=== PATIENT | female | born 1945 | race Caucasian/White ===

== ENCOUNTER 2024-04-21 13:13 | Outpatient (AMB) | payer MEDICARE, SELFPAY ==
[2024-04-21 13:21] VITALS: BP 136/80; PULSE 82; O2SAT 99; BMI 19.2
--- NOTE | 2024-04-21 13:21 | A.OFFPC_ITS ---
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 Accompanied by: Self / Same As Patient Allergies No Known Allergies Allergy (Verified 04/21/24 13:31) Medication List - Last Reconciled 04/21/24 by Jeanette Lux MD No Known Home Meds Tobacco use date assessed: 04/21/24 Fall risk assessment: No Falls in past year Last assessed Fall Risk: 04/21/24 Dental Screening Dental Screen Date: 04/21/24 Did you have a dental visit in the last 12 months?: Yes Did you have a dental problem in the last 6 months where you did not have access to dental care?: No Was dental information given to patient?: Patient has dentist HPI HPI Comments History of Present Illness Details 78 year old female with a past medical h istory of osteoporosis, multiple compression fractures, meningioma, elevated blood pressure presenting for follow up Meningioma: last exam 09/2023. Osteoporosis: recent 07/2023. History of multiple compression fractures. Takes calcium. Takes vitamin D during winter months. declines bisphosphanate etc Mammo 04/2023 DXA 2022 Colonoscopy-refuses. ROS CONSTITUTIONAL: Denies weight loss, fever and chills. HEENT: Denies changes in vision and hearing. RESPIRATORY: Denies SOB and cough. CV: Denies palpitations and CP GI: Denies abdominal pain, nausea, vomiting and diarrhea. : Denies dysuria and urinary frequency. MSK: Denies new myalgia and joint pain. SKIN: Denies rash and pruritus. NEUROLOGICAL: Denies headache PSYCHIATRIC: Denies recent changes in mood. PHYSICAL EXAM: GENERAL: Alert and oriented x 3. NAD EYES: EOMI. Anicteric. HENT: Moist mucous membranes. No scleral icterus. No cervical lymphadenopathy. LUNGS: Clear to auscultation bilaterally. CARDIOVASCULAR: Regular rate and rhythm. No murmur. No JVD. ABDOMEN: Soft, non-tender +bs EXTREMITIES: No edema. Non-tender. SKIN: No rashes or lesions. Warm. NEUROLOGIC: No focal neurological deficits. CN II-XII grossly intact PSYCHIATRIC: Cooperative. Appropriate mood and affect [facility] Social History (Updated 04/21/24 @ 13:33 by Deisy Wood [facility]) Household Members: None Housing: House 75 years or older and lives alone: Yes Alcohol intake: never Patient Tobacco Use Status: Never used Tobacco e-Cigarette/Vaping Use: Never Used service: No Current occupational status: retired Cognitive needs: No Hearing needs: No Vision needs: No Questionnaire PHQ-9 Over the last 2 weeks, how often have you been bothered by any of the following problems? 1. Little interest or pleasure in doing things: not at all 2. Feeling down, depressed, or hopeless: not at all 3. Trouble falling or staying asleep, or sleeping too much: not at all 4. Feeling tired or having little energy: not at all 5. Poor appetite or overeating: not at all 6. Feeling bad about yourself - or that you are a failure or have let yourself or your family down: not at all 7. Trouble concentrating on things, such as reading the newspaper or watching television: not at all 8. Moving or speaking so slowly that other people could have noticed. Or the opposite - being so fidgety or restless that you have been moving around a lot more than usual: not at all 9. Thoughts that you would be better off or of hurting yourself in some way: not at all Total score: 0 Depression Screening Interpretation: Negative (negative) Depression Screening Done: Yes 08151 - PHQ-9 Billing: Yes Source: Developed by Drs. Dexter Munoz, Penelope Grubbs, Ish Mancilla and colleagues, with an educational giovani from [employer] Thrive Questionnaire Date Thrive assessed: 04/21/24 I am a: Patient What is your living situation today?: I have a steady place to live Within the past 12 months, did the food you bought not last and you didn't have the money to get more?: Never true Within the past 12 months, did you worry whether your food would run out before you got money to buy more?: Never true Do you have trouble paying for medicines?: No Do you have trouble getting transportation to medical appointments?: No Do you have trouble paying your heating and electricity bill?: No Do you have trouble taking care of your child, family member or friend?: No Do you have trouble with day-to-day activities such as bathing, preparing meals, shopping, managing finances, etc.?: No Are you currently unemployed and looking for a job?: No Are you interested in more education?: No Please select the resources that you would like help with: None Currently or been in a relationship where the following occur: No concerns re ported THRIVE Score: 0 AUDIT C Alcohol Use Questionnaire (AUDIT-C) 1. How often do you have a drink containing alcohol?: Never 3. How often do you have six or more drinks on one occasion?: Never Total Score: 0 ESME-7 AMB Questionnaire ESME-7 Date ESME - 7 assessed: 04/21/24 Feeling nervous, anxious, or on edge: 0 = Not at all Not being able to stop or control worryin = Not at all Worrying too much about different things: 0 = Not at all Trouble relaxin = Not at all Being so restless that it is hard to sit still: 0 = Not at all Becoming easily annoyed or irritable: 0 = Not at all Feeling afraid as if something awful might happen: 0 = Not at all Total ESME-7 score (0-4 normal; 5-9 mild; 10-14 moderate; 15-21 severe): 0 Source: Developed by Drs. Dexter Munoz, Penelope Grubbs, Ish Mancilla and colleagues, with an educational giovani from [employer] ESME-7 Assessment Billing ESME-7 Assessment Tool: ESME-7 Assessment 59149 Physical exam (Primary Care) Vital Signs: Last Vital Signs Pulse 82 04/21/24 13:21 BP 136/80 04/21/24 13:21 Pulse Ox 99 04/21/24 13:21 Oxygen Delivery Method Room Air 04/21/24 13:21 BMI result Body Mass Index 19.2 Tobacco/Smoking Status: Tobacco use Status Tobacco use date assessed 04/21/24 04/21/24 13:34 Patient Tobacco Use Status Never used Tobacco 04/21/24 13:34 e-Cigarette/Vaping Use Never Used 04/21/24 13:34 PHQ-9: PHQ-9 Score PHQ-9: Total score 0 04/21/24 13:34 Depression Screening Interpretation: Negative (negative) Thrive Assessment: Date of Thrive Assessment Date Thrive assessed 04/21/24 04/21/24 13:34 Currently or been in a relationship where the following occur: No concerns reported Assessment and Plan Assessment & Plan (1) Osteoporosis: Code(s): M81.0 - Age-related osteoporosis without current pathological fracture Qualifiers: Osteoporosis type: age-related Presence of current pathological fracture: with current pathological fracture Encounter type: sequela Qualified Code(s): M80.00XS - Age-related osteoporosis with current pathological fracture, unspecified site, sequela Plan: continue vitamin D, calcium (2) Hyperlipidemia: Code(s): E78.5 - Hyperlipidemia, unspecified Qualifiers: Hyperlipidemia type: mixed hyperlipidemia Qualified Code(s): E78.2 - Mixed hyperlipidemia Plan: declines statin therapy (3) History of compression fracture of spine: Code(s): Z87.81 - Personal history of (healed) traumatic fracture Orders: Orders Complete Blood Count Auto Diff Today E78.5 - Hyperlipidemia, unspecified, M80.00XS - Age-related osteoporosis with current pathological fracture, unspecified site, sequela, Z13.0 - Encounter for screening for diseases of the blood and blood-forming organs and certain disorders involving the immune mechanism, Z13.228 - Encounter for screening for other metabolic disorders Comprehensive Met. Panel Today E78.5 - Hyperlipidemia, unspecified, M80.00XS - Age-related osteoporosis with current pathological fracture, unspecified site, sequela, Z13.0 - Encounter for screening for diseases of the blood and blood- forming organs and certain disorders involving the immune mechanism, Z13.228 - Encounter for screening for other metabolic disorders Lipid Panel Today E78.5 - Hyperlipidemia, unspecified, M80.00XS - Age-related osteoporosis with current pathological fracture, unspecified site, sequela, Z13.0 - Encounter for screening for diseases of the blood and blood-forming organs and certain disorders involving the immune mechanism, Z13.228 - Encounter for screening for other metabolic disorders UA CC w/rflx Micro + Cult Today E78.5 - Hyperlipidemia, unspecified, M80.00XS - Age-related osteoporosis with current pathological fracture, unspecified site, sequela, Z13.0 - Encounter for screening for diseases of the blood and blood- forming organs and certain disorders involving the immune mechanism, Z13.228 - Encounter for screening for other metabolic disorders Coding Level of Care Code Tele Est Pt Level 4 (75180) Complex EM visit Add On G2211 Diagnoses Age-related osteoporosis with current pathological fracture, sequela M80.00XS Osteoporosis type: age-related Presence of current pathological fracture: with current pathological fracture Encounter type: sequela Mixed hyperlipidemia E78.2 Hyperlipidemia type: mixed hyperlipidemia History of compression fracture of spine Z87.81 Additional Codes ESME-7 Assessment Billing - ESME-7 Assessment Tool: ESME-7 Assessment 54128 ([id number])
== END 2024-04-21 14:05 | disposition home or self-care (01) ==
PROVIDERS: PCP Internal Medicine; Visit Provider Internal Medicine
DX: E78.2 Mixed hyperlipidemia (principal); M80.00XS Age-related osteoporosis with current pathological fracture, unspecified site, sequela; Z87.81 Personal history of (healed) traumatic fracture
CPT/HCPCS: 99214

== ENCOUNTER 2024-05-15 07:45 | Outpatient (REF) | payer MEDICARE, SELFPAY ==
[2024-05-15 11:02] LABS: MANUAL DIFF FLAG NO
[2024-05-15 11:11] LABS: Appearance Urine Clear; Color Urine Yellow; Glucose Urine UA Negative (Negative); Leukocyte Esterase Urine Trace (Negative); Nitrite Urine Negative (Negative); PH 6.5 (5.0-9.0); UMIC TRIGGER UACC YES; Urine Blood Negative (Negative); Urine Ketones Negative (Negative); Urine Protein Negative (Neg-Trace)
[2024-05-15 11:19] LABS: Basophils Absolute Auto 0.1 X10*3/uL (0.0-0.2); Basophils Percent Auto 1.1 % (0-2); Eosinophils Absolute Auto 0.2 X10*3/uL (0.0-0.4); Eosinophils Percent Auto 3.9 % (0-4); Hematocrit 39.1 % (37.0-47.0); Hemoglobin 12.7 g/dl (12.0-16.0); Imm Gran Abs Auto 0.01 X10*3/uL (0.00-0.03); Imm Gran Pct Auto 0.2 % (0.0-0.4); Lymphocytes Absolute Auto 1.3 X10*3/uL (1.2-4.9); Lymphocytes Percent Auto 27.7 % (20-40); Mean Corpuscular HGB Conc 32.5 g/dl (31.0-35.0); Mean Corpuscular Volume 92.2 fL (80.0-98.0); Mean Platelet Volume 10.7 fL (9.4-12.3); Monocytes Absolute Auto 0.4 X10*3/uL (0.1-1.2); Monocytes Percent Auto 7.6 % (2-11); Neutrophils Absolute Auto 2.7 x10*3/uL (2.0-8.3); Neutrophils Percent Auto 59.5 % (45-73); Platelet Count 201 X10*3/uL (160-400); Red Blood Count 4.24 X10*6/uL (4.20-5.50); Red Cell Distribution Width 13.5 % (11.0-16.0); White Blood Count 4.6 X10*3/uL (4.8-10.8)
[2024-05-15 11:28] LABS: Bacteria Urine None Seen (None Seen); Hyaline Casts Urine 0-2 /LPF (0-2); RBC Urine 0-2 /HPF (0-2); Squamous Epithelial Cell Urine 0-2 /HPF (0-2); WBC Urine 0-5 /HPF (0-5)
[2024-05-15 11:32] LABS: Alanine Aminotransferase 12 U/L (0-31); Albumin Level 4.1 g/dL (3.5-5.0); Alkaline Phosphatase 69 U/L (39-117); Anion Gap 12 (12-20); Aspartate Amino Transferase 23 U/L (5-31); Bilirubin Total 1.3 mg/dL (0.0-1.0); Blood Urea Nitrogen 17 mg/dL (9-16); Calcium 9.7 mg/dL (8.4-10.2); Carbon Dioxide 29 mmol/L (22-29); Chloride 106 mmol/L (96-108); Cholesterol 207 mg/dL (<200); Estimated Glomerular Filt Rate > 60; Glucose Random 77 mg/dL (60-115); HDL Cholesterol 91 mg/dL (>40); LDL Cholesterol Calculated 106 mg/dL (<100); Potassium 4.4 mmol/L (3.3-5.1); Sodium 143 mmol/L (135-145); Triglycerides 54 mg/dL (<150)
== END 2024-05-15 07:46 | disposition home or self-care (01) ==
LOC: HO.WFDLDS 07:45
PROVIDERS: Visit Provider Internal Medicine
DX: E78.5 Hyperlipidemia, unspecified (principal); M80.00XS Age-related osteoporosis with current pathological fracture, unspecified site, sequela; Z13.0 Encounter for screening for diseases of the blood and blood-forming organs and certain disorders involving the immune mechanism; Z13.228 Encounter for screening for other metabolic disorders
CPT/HCPCS: 36415; 80053; 80061; 81001; 85025

== ENCOUNTER 2024-08-04 15:37 | Outpatient (AMB) | payer MEDICARE, SELFPAY ==
--- NOTE | 2024-08-04 13:30 | MHC.PC.OV ---
Vital Signs 08/04/24 15:51 Height 4 ft 10 in Weight 94 lb 4 oz BMI 19.7 BP 138/76 Blood Pressure Location Rt brachial Position Sitting Pulse 77 Pulse Source Pulse Oximeter Pulse Oximetry (%) 97 Oxygen Delivery Method Room Air Intake Visit Reasons: Physical Allergies No Known Allergies Allergy (Verified 08/04/24 15:55) Tobacco use date assessed: 08/04/24 Fall risk assessment: No Falls in past year Dental Screening Dental Screen Date: 08/04/24 Did you have a dental visit in the last 12 months?: Yes Did you have a dental problem in the last 6 months where you did not have access to dental care?: No Was dental information given to patient?: Patient has dentist HPI HPI Comments History of Present Illness Details 78 year old female with a past medical history of osteoporosis, multiple compression fractures, meningioma, elevated blood pressure presenting for physical exam Meningioma: last exam 09/2023. Osteoporosis: recent 07/2023. History of multiple compression fractures. Takes calcium. Takes vitamin D during winter months. declines bisphosphanate etc Saw Dr Mejias for knee pain. Offered steroid shot but she declined. She wanted to make sure there was no fracture. Mammo 04/2023 DXA 2022 Colonoscopy-refuses. ROS CONSTITUTIONAL: Denies weight loss, fever and chills. HEENT: Denies changes in vision and hearing. RESPIRATORY: Denies SOB and cough. CV: Denies palpitations and CP GI: Denies abdominal pain, nausea, vomiting and diarrhea. : Denies dysuria and urinary frequency. MSK: see HPI SKIN: Denies rash and pruritus. NEUROLOGICAL: Denies headache PSYCHIATRIC: Denies recent changes in mood. PHYSICAL EXAM: GENERAL: Alert and oriented x 3. NAD EYES: EOMI. Anicteric. HENT: Moist mucous membranes. No scleral icterus. No cervical lymphadenopathy. LUNGS: Clear to auscultation bilaterally. CARDIOVASCULAR: Regular rate and rhythm. No murmur. No JVD. ABDOMEN: Soft, non-tender +bs EXTREMITIES: No edema. Non-tender. SKIN: No rashes or lesions. Warm. NEUROLOGIC: No focal neurological deficits. CN II-XII grossly intact PSYCHIATRIC: Cooperative. Appropriate mood and affect [facility] Surgical History (Updated 08/04/24 @ 15:58 by Jeanette Michaud CMA) H/O rotator cuff surgery H/O: hysterectomy Family History (Updated 08/04/24 @ 16:00 by Jeanette Michaud [facility]) Mother Pancreatic cancer Father Lung cancer Brother Thyroid cancer Social History Household Members: None Housing: House 75 years or older and lives alone: Yes Alcohol intake: never Patient Tobacco Use Status: Never used Tobacco e-Cigarette/Vaping Use: Never Used service: No Current occupational status: retired Cognitive needs: No Hearing needs: No Vision needs: No Questionnaire PHQ-9 Over the last 2 weeks, how often have you been bothered by any of the following problems? 1. Little interest or pleasure in doing things: not at all 2. Feeling down, depressed, or hopeless: not at all 3. Trouble falling or staying asleep, or sleeping too much: not at all 4. Feeling tired or having little energy: not at all 5. Poor appetite or overeating: not at all 6. Feeling bad about yourself - or that you are a failure or have let yourself or your family down: not at all 7. Trouble concentrating on things, such as reading the newspaper or watching television: not at all 8. Moving or speaking so slowly that other people could have noticed. Or the opposite - being so fidgety or restless that you have been moving around a lot more than usual: not at all 9. Thoughts that you would be better off or of hurting yourself in some way: not at all Total score: 0 Depression Screening Interpretation: Negative (negative) Depression Screening Done: Yes 82634 - PHQ-9 Billing: Yes Source: Developed by Drs. Dexter Muonz, Penelope Grubbs, Ish Mancilla and colleagues, with an educational giovani from [employer]. Thrive Questionnaire Date Thrive assessed: 08/01/24 I am a: Patient What is your living situation today?: I have a steady place to live Within the past 12 months, did the food you bought not last and you didn't have the money to get more?: Never true Within the past 12 months, did you worry whether your food would run out before you got money to buy more?: Never true Do you have trouble paying for medicines?: No Do you have trouble getting transportation to medical appointments?: No Do you have trouble paying your heating and electricity bill?: No Do you have trouble taking care of your child, family member or friend?: No Do you have trouble with day-to-day activities such as bathing, preparing meals, shopping, managing finances, etc.?: No Are you currently unemployed and looking for a job?: No Are you interested in more education?: No Please select the resources that you would like help with: None THRIVE Score: 0 AUDIT C Alcohol Use Questionnaire (AUDIT-C) 1. How often do you have a drink containing alcohol?: Never 3. How often do you have six or more drinks on one occasion?: Never Total Score: 0 ESME-7 AMB Questionnaire ESME-7 Date ESME - 7 assessed: 08/04/24 Feeling nervous, anxious, or on edge: 0 = Not at all Not being able to stop or control worryin = Not at all Worrying too much about different things: 0 = Not at all Trouble relaxin = Not at all Being so restless that it is hard to sit still: 0 = Not at all Becoming easily annoyed or irritable: 0 = Not at all Feeling afraid as if something awful might happen: 0 = Not at all Total ESME-7 score (0-4 normal; 5-9 mild; 10-14 moderate; 15-21 severe): 0 Source: Developed by Drs. Dexter Munoz, Penelope Grubbs, Ish Mancilla and colleagues, with an educational giovani from [employer]. Physical exam (Primary Care) Vital Signs: Last Vital Signs Pulse 77 08/04/24 15:51 BP 138/76 08/04/24 15:51 Pulse Ox 97 08/04/24 15:51 Oxygen Delivery Method Room Air 08/04/24 15:51 BMI result Body Mass Index 19.7 Tobacco/Smoking Status: Tobacco use Status Tobacco use date assessed 08/04/24 08/04/24 16:00 Patient Tobacco Use Status Never used Tobacco 08/04/24 13:30 e-Cigarette/Vaping Use Never Used 08/04/24 13:30 PHQ-9: PHQ-9 Score PHQ-9: Total score 0 08/04/24 21:44 Depression Screening Interpretation: Negative (negative) Thrive Assessment: Date of Thrive Assessment Date Thrive assessed 08/01/24 08/04/24 13:30 Coding Level of Care Code Est Pt Prev Care >65y(58606) Diagnoses Physical exam Z00.00 Age-related osteoporosis with current pathological fracture, sequela M80.00XS Encounter type: sequela Osteoporosis type: age-related Presence of current pathological fracture: with current pathological fracture History of compression fracture of spine Z87.81 Assessment & Plan Assessment & Plan (1) Physical exam: Code(s): Z00.00 - Encounter for general adult medical examination without abnormal findings Category: Medical Plan: 78 year old presenting for annual review. Chronic medical conditions discussed Preventive measures for age Continues to declines colonoscopy Declines osteoporosis rx She will follow up in six months (2) Osteoporosis: Code(s): M81.0 - Age-related osteoporosis without current pathological fracture Category: Medical Qualifiers: Encounter type: sequela Osteoporosis type: age-related Presence of current pathological fracture: with current pathological fracture Qualified Code(s): M80.00XS - Age-related osteoporosis with current pathological fracture, unspecified site, sequela Plan: see above (3) History of compression fracture of spine: Code(s): Z87.81 - Personal history of (healed) traumatic fracture Category: Medical Plan: declines rx treatment Orders: Orders MM screening mammo BI Today Z12.31 - Encounter for screening mammogram for malignant neoplasm of breast
[2024-08-04 15:51] VITALS: BP 138/76; PULSE 77; O2SAT 97; BMI 19.7
== END 2024-08-04 16:33 | disposition home or self-care (01) ==
PROVIDERS: PCP Internal Medicine; Visit Provider Internal Medicine
DX: Z00.00 Encounter for general adult medical examination without abnormal findings (principal); M80.00XS Age-related osteoporosis with current pathological fracture, unspecified site, sequela; Z87.81 Personal history of (healed) traumatic fracture

== ENCOUNTER → 2024-08-04 15:37 | Outpatient (BNVA) | payer MEDICARE, SELFPAY | PROVIDERS: PCP Internal Medicine; Visit Provider Internal Medicine | DX: Z00.00 Encounter for general adult medical examination without abnormal findings (principal); M80.00XD Age-related osteoporosis with current pathological fracture, unspecified site, subsequent encounter for fracture with routine healing; Z87.81 Personal history of (healed) traumatic fracture | CPT/HCPCS: 96127; 99397 ==

== ENCOUNTER 2025-05-19 09:57 | Outpatient (AMB) | payer MEDICARE, SELFPAY ==
--- NOTE | 2025-05-19 10:12 | A.OFFPC_ITS ---
Vital Signs 05/19/25 10:22 Height 4 ft 10 in Weight 94 lb 4 oz BMI 19.7 BP 124/70 Blood Pressure Location Lt brachial Position Sitting Respiration 12 Pulse 69 Pulse Source Pulse Oximeter Temp 97.8 F Temp Source Oral Pulse Oximetry (%) 98 Oxygen Delivery Method Room Air Intake Visit Reasons: referral for brain scan/swelling left leg Intake Note: Order or referral for Brain scan. Dr Fox Benavidez oncologist usually orders a CT of the brain every 2 years. Swelling left leg, but is seeing Dr Mejias on Sunday. Child Care Sitter Required: No Allergies No Known Allergies Allergy (Verified 05/19/25 10:21) Tobacco use date assessed: 05/19/25 Fall risk assessment: No Falls in past year Last assessed Fall Risk: 05/19/25 Dental Screening Dental Screen Date: 05/19/25 Did you have a dental visit in the last 12 months?: Yes Did you have a dental problem in the last 6 months where you did not have access to dental care?: No Was dental information given to patient?: Patient has dentist HPI HPI Comments History of Present Illness Details 78 year old female with a past medical h istory of osteoporosis, multiple compression fractures, meningioma, elevated blood pressure presenting for physical exam Meningioma: last exam 09/2023. Has followed with onc Dr Stratton. Requests repeat CT. Osteoporosis: recent 07/2023. History of multiple compression fractures. Takes calcium. Takes vitamin D during winter months. declines bisphosphanate etc Saw Dr Mejias for knee pain. Offered steroid shot but she declined. She wanted to make sure there was no fracture. She has had increased swelling of the left leg recently Mammo 04/2023 DXA 2022 Colonoscopy-refuses. ROS see HPI PHYSICAL EXAM: GENERAL: Alert and oriented x 3. NAD EYES: EOMI. Anicteric. HENT: Moist mucous membranes. No scleral icterus. No cervical lymphadenopathy. LUNGS: Clear to auscultation bilaterally. CARDIOVASCULAR: Regular rate and rhythm. No murmur. No JVD. ABDOMEN: Soft, non-tender +bs EXTREMITIES: Trace L>R lower extremity edema SKIN: No rashes or lesions. Warm. NEUROLOGIC: No focal neurological deficits. CN II-XII grossly intact PSYCHIATRIC: Cooperative. Appropriate mood and affect [facility] Surgical History H/O rotator cuff surgery H/O: hysterectomy Family History Mother Pancreatic cancer Father Lung cancer Brother Thyroid cancer Social History Household Members: None Housing: House 75 years or older and lives alone: Yes Alcohol intake: never Patient Tobacco Use Status: Never used Tobacco e-Cigarette/Vaping Use: Never Used service: No Current occupational status: retired Cognitive needs: No Hearing needs: No Vision needs: No Questionnaire PHQ-9 Over the last 2 weeks, how often have you been bothered by any of the following problems? 1. Little interest or pleasure in doing things: not at all 2. Feeling down, depressed, or hopeless: not at all 3. Trouble falling or staying asleep, or sleeping too much: not at all 4. Feeling tired or having little energy: not at all 5. Poor appetite or overeating: not at all 6. Feeling bad about yourself - or that you are a failure or have let yourself or your family down: not at all 7. Trouble concentrating on things, such as reading the newspaper or watching television: not at all 8. Moving or speaking so slowly that other people could have noticed. Or the opposite - being so fidgety or restless that you have been moving around a lot more than usual: not at all 9. Thoughts that you would be better off or of hurting yourself in some way: not at all Total score: 0 Depression Screening Interpretation: Negative Depression Screening Done: Yes 70078 - PHQ-9 Billing: Yes Source: Developed by Drs. Dexter Munoz, Penelope Grubbs, Ish Mancilla and colleagues, with an educational giovani from [employer]. Thrive Questionnaire Date Thrive assessed: 05/12/25 I am a: Patient What is your living situation today?: I have a steady place to live Within the past 12 months, did the food you bought not last and you didn't have the money to get more?: Never true Within the past 12 months, did you worry whether your food would run out before you got money to buy more?: Never true Do you have trouble paying for medicines?: No Do you have trouble getting transportation to medical appointments?: No Do you have trouble paying your heating and electricity bill?: No Do you have trouble taking care of your child, family member or friend?: No Do you have trouble with day-to-day activities such as bathing, preparing meals, shopping, managing finances, etc.?: No Are you currently unemployed and looking for a job?: No Are you interested in more education?: I choose not to answer this question Please select the resources that you would like help with: None Currently or been in a relationship where the following occur: No concerns reported THRIVE Score: 0 AUDIT C Alcohol Use Questionnaire (AUDIT-C) 1. How often do you have a drink containing alcohol?: Never 3. How often do you have six or more drinks on one occasion?: Never Total Score: 0 ESME-7 AMB Questionnaire ESME-7 Date ESME - 7 assessed: 08/04/24 Feeling nervous, anxious, or on edge: 0 = Not at all Not being able to stop or control worryin = Not at all Worrying too much about different things: 0 = Not at all Trouble relaxin = Not at all Being so restless that it is hard to sit still: 0 = Not at all Becoming easily annoyed or irritable: 0 = Not at all Feeling afraid as if something awful might happen: 0 = Not at all Total ESME-7 score (0-4 normal; 5-9 mild; 10-14 moderate; 15-21 severe): 0 Source: Developed by Drs. Dexter Munoz, Penelope Grubbs, Ish Mancilla and colleagues, with an educational giovani from [employer]. Physical exam (Primary Care) Vital Signs: Last Vital Signs Temp 97.8 F 05/19/25 10:22 Pulse 69 05/19/25 10:22 Resp 12 05/19/25 10:22 BP 124/70 05/19/25 10:22 Pulse Ox 98 05/19/25 10:22 Oxygen Delivery Method Room Air 05/19/25 10:22 BMI result Body Mass Index 19.7 Tobacco/Smoking Status: Tobacco use Status Tobacco use date assessed 05/19/25 05/19/25 10:14 Patient Tobacco Use Status Never used Tobacco 05/19/25 10:14 e-Cigarette/Vaping Use Never Used 05/19/25 10:14 PHQ-9: PHQ-9 Score PHQ-9: Total score 0 05/19/25 13:38 Depression Screening Interpretation: Negative Thrive Assessment: Date of Thrive Assessment Date Thrive assessed 05/12/25 05/19/25 10:14 Currently or been in a relationship where the following occur: No concerns reported Coding Level of Care Code Est Pt Level 4 (70927) Complex EM visit Add On G2211 Diagnoses Meningioma D32.9 Age-related osteoporosis with current pathological fracture, sequela M80.00XS Encounter type: sequela Osteoporosis type: age-related Presence of current pathological fracture: with current pathological fracture Leg swelling M79.89 Additional Codes PHQ-9 - 80525 - PHQ-9 Billing: Yes ([id number]) Assessment & Plan Assessment & Plan (1) Meningioma: Code(s): D32.9 - Benign neoplasm of meninges, unspecified Category: Medical (2) Osteoporosis: Code(s): M81.0 - Age-related osteoporosis without current pathological fracture Category: Medical Qualifiers: Encounter type: sequela Osteoporosis type: age-related Presence of current pathological fracture: with current pathological fracture Qualified Code(s): M80.00XS - Age-related osteoporosis with current pathological fracture, unspecified site, sequela (3) Leg swelling: Code(s): M79.89 - Other specified soft tissue disorders Category: Medical Plan Meningioma-CT ordered Leg swelling pain-has upcoming with ortho. Check lyme Osteoporosis-DXA ordered. Due in the fall Orders: Orders XR DEXA axial skeleton Today M80.00XS - Age-related osteoporosis with current pathological fracture, unspecified site, sequela CT head/brain wo IV con Today D32.9 - Benign neoplasm of meninges, unspecified Lyme IgG/IgM w/reflex to WB Today M79.89 - Other specified soft tissue disorders
[2025-05-19 10:22] VITALS: BP 124/70; PULSE 69; RESP 12; TEMP 36.6; O2SAT 98; BMI 19.7
== END 2025-05-19 10:54 | disposition home or self-care (01) ==
LOC: HO.HMCFM 09:58
PROVIDERS: PCP Internal Medicine; Visit Provider Internal Medicine
DX: D32.9 Benign neoplasm of meninges, unspecified (principal); M80.00XS Age-related osteoporosis with current pathological fracture, unspecified site, sequela; M79.89 Other specified soft tissue disorders

== ENCOUNTER → 2025-05-19 09:57 | Outpatient (BNVA) | payer MEDICARE, SELFPAY | PROVIDERS: PCP Internal Medicine; Visit Provider Internal Medicine | DX: D32.9 Benign neoplasm of meninges, unspecified (principal); M80.00XS Age-related osteoporosis with current pathological fracture, unspecified site, sequela; M79.89 Other specified soft tissue disorders; Z13.31 Encounter for screening for depression | CPT/HCPCS: 96127; 99212 ==

== ENCOUNTER 2025-09-07 09:58 | Outpatient (AMB) | payer MEDICARE, SELFPAY ==
--- NOTE | 2025-09-07 10:09 | A.OFFPC_ITS ---
Vital Signs 09/07/25 10:13 Height 4 ft 10 in Weight 94 lb 2 oz BMI 19.7 BP 124/80 Blood Pressure Location Rt brachial Position Sitting Respiration 14 Pulse 67 Pulse Source Pulse Oximeter Temp 98 F Temp Source Oral Pulse Oximetry (%) 99 Oxygen Delivery Method Room Air Intake Visit Reasons: Pneumonia and tested possitive with Covid Intake Note: Diagnosed with pneumonia and covid. 08/10/25. Went to [facility]. Admissions Rn Required: No Allergies No Known Allergies Allergy (Verified 09/07/25 10:12) Tobacco use date assessed: 09/07/25 Dental Screening Dental Screen Date: 05/19/25 HPI HPI Comments History of Present Illness Details 80 year old female with a past medical h istory of osteoporosis, multiple compression fractures, meningioma, elevated blood pressure presenting for ER follow up She was evaluated at [facility] on 08/10/25 On Sunday she had woke up kind of passed out, she was disoriented. She rested On Sunday she woke up, she felt weak, felt nauseous and with chest congestion, diarrhea and subjective fever so she had a friend drive her to the ER. COVID swab positive and CXR consistent with possible right upper lobe viral pneumonia. CT scan 1.5cm meningioma She continues to have some fatigue and lingering cough but overall feels much improved Meningioma: Has followed with onc Dr Stratton. Repeat CT was undertaken in the ER-1.5cmg meningioma. 2 year repeat recommended. Osteoporosis: recent 07/2023. History of multiple compression fractures. Takes calcium. Takes vitamin D during winter months. declines bisphosphanate etc Saw Dr Mejias for knee pain. Offered steroid shot but she declined. She wanted to make sure there was no fracture. She has had increased swelling of the left leg recently Mammo 04/2023 DXA 2022 Colonoscopy-refuses. ROS see HPI PHYSICAL EXAM: GENERAL: Alert and oriented x 3. NAD EYES: EOMI. Anicteric. HENT: Moist mucous membranes. No scleral icterus. No cervical lymphadenopathy. LUNGS: Clear to auscultation bilaterally. CARDIOVASCULAR: Regular rate and rhythm. No JVD. ABDOMEN: Soft, non-tender +bs EXTREMITIES: +PT pulses SKIN: No rashes or lesions. Warm. NEUROLOGIC: No focal neurological deficits. CN II-XII grossly intact PSYCHIATRIC: Cooperative. Appropriate mood and affect [facility] Surgical History H/O rotator cuff surgery H/O: hysterectomy Family History Mother Pancreatic cancer Father Lung cancer Brother Thyroid cancer Social History Household Members: None Housing: House 75 years or older and lives alone: Yes Alcohol intake: never Patient Tobacco Use Status: Never used Tobacco e-Cigarette/Vaping Use: Never Used service: No Current occupational status: retired Cognitive needs: No Hearing needs: No Vision needs: No Questionnaire Thrive Questionnaire Date Thrive assessed: 05/12/25 I am a: Patient What is your living situation today?: I have a steady place to live Within the past 12 months, did the food you bought not last and you didn't have the money to get more?: Never true Within the past 12 months, did you worry whether your food would run out before you got money to buy more?: Never true Do you have trouble paying for medicines?: No Do you have trouble getting transportation to medical appointments?: No Do you have trouble paying your heating and electricity bill?: No Do you have trouble taking care of your child, family member or friend?: No Do you have trouble with day-to-day activities such as bathing, preparing meals, shopping, managing finances, etc.?: No Are you currently unemployed and looking for a job?: No Are you interested in more education?: I choose not to answer this question Please select the resources that you would like help with: None Currently or been in a relationship where the following occur: No concerns reported THRIVE Score: 0 ESME-7 AMB Questionnaire ESME-7 Date ESME - 7 assessed: 08/04/24 Source: Developed by Penelope DoyleW. Romie, Ish Mancilla and colleagues, with an educational giovani from [employer]. Physical exam (Primary Care) Vital Signs: Last Vital Signs Temp 98 F 09/07/25 10:13 Pulse 67 09/07/25 10:13 Resp 14 09/07/25 10:13 BP 124/80 09/07/25 10:13 Pulse Ox 99 09/07/25 10:13 Oxygen Delivery Method Room Air 09/07/25 10:13 BMI result Body Mass Index 19.7 Tobacco/Smoking Status: Tobacco use Status Tobacco use date assessed 09/07/25 09/07/25 10:18 Patient Tobacco Use Status Never used Tobacco 09/07/25 10:11 e-Cigarette/Vaping Use Never Used 09/07/25 10:11 Thrive Assessment: Date of Thrive Assessment Date Thrive assessed 05/12/25 09/07/25 10:11 Currently or been in a relationship where the following occur: No concerns reported Coding Level of Care Code Complex visit Add On G2211 Diagnoses History of COVID-19 Z86.16 Abnormal CXR R93.89 Assessment & Plan Assessment & Plan (1) History of COVID-19: Code(s): Z86.16 - Personal history of COVID-19 (2) Abnormal CXR: Code(s): R93.89 - Abnormal findings on diagnostic imaging of other specified body structures Plan 80 year old female for follow up ER course reviewed Some residual fatigue. Discussed post COVID symptoms We will repeat CXR -she wants to do this at [facility] Xray order and lab orders given to patient with instruction to proceed to [facility] for testing Orders: Orders XR chest 2V 09/07/25 R93.89 - Abnormal findings on diagnostic imaging of other specified body structures, Z87.01 - Personal history of pneumonia (recurrent)
[2025-09-07 10:13] VITALS: BP 124/80; PULSE 67; RESP 14; TEMP 36.6; O2SAT 99; BMI 19.7
== END 2025-09-07 12:36 | disposition home or self-care (01) ==
LOC: HO.HMCFM 09:59
PROVIDERS: PCP Internal Medicine; Visit Provider Internal Medicine
DX: R93.89 Abnormal findings on diagnostic imaging of other specified body structures (principal); Z86.16 Personal history of COVID-19

== ENCOUNTER → 2025-09-07 09:58 | Outpatient (BNVA) | payer MEDICARE, SELFPAY | PROVIDERS: PCP Internal Medicine; Visit Provider Internal Medicine | DX: Z09 Encounter for follow-up examination after completed treatment for conditions other than malignant neoplasm (principal); U07.1 COVID-19; M81.0 Age-related osteoporosis without current pathological fracture; D32.9 Benign neoplasm of meninges, unspecified; Z86.19 Personal history of other infectious and parasitic diseases; R93.89 Abnormal findings on diagnostic imaging of other specified body structures | CPT/HCPCS: 99212 ==

== ENCOUNTER 2025-10-05 11:05 | Outpatient (AMB) | payer MEDICARE, SELFPAY ==
--- NOTE | 2025-10-05 11:10 | A.OFFPC_ITS ---
Vital Signs 10/05/25 11:14 Height 4 ft 10 in Weight 100 lb 8 oz BMI 21.0 BP 132/84 Blood Pressure Location Lt brachial Position Sitting Respiration 14 Pulse 73 Pulse Source Pulse Oximeter Temp 98 F Temp Source Oral Pulse Oximetry (%) 97 Oxygen Delivery Method Room Air Intake Visit Reasons: Follow up Osteoporosis Intake Note: Discuss bone density, osteoporosis Director [employer] Database Required: No Allergies No Known Allergies Allergy (Verified 10/05/25 11:13) Tobacco use date assessed: 10/05/25 Fall risk assessment: 2 + Falls in past year Last assessed Fall Risk: 10/05/25 Dental Screening Dental Screen Date: 05/19/25 HPI HPI Comments History of Present Illness Details 80 year old female with a past medical h istory of osteoporosis, multiple compression fractures, meningioma, elevated blood pressure presenting for osteoporosis follow up She was evaluated at [facility] on 08/10/25 On Sunday she had woke up kind of passed out, she was disoriented. She rested On Sunday she woke up, she felt weak, felt nauseous and with chest congestion, diarrhea and subjective fever so she had a friend drive her to the ER. COVID swab positive and CXR consistent with possible right upper lobe viral pneumonia and findings c/w COPD She is feeling mostly back to baseline-still some head congestion, intermittent cough. She is outdoors feeding the Osteoporosis: recent 08/06/25. History of multiple compression fractures. Takes calcium and vitamin D. We discussed alternate medications at last visit but ultimately declines bisphosphanate etc and endo referral Meningioma: Has followed with onc Dr Stratton. Repeat CT was undertaken in the ER-1.5cm meningioma. 2 year repeat recommended. Saw Dr Mejias for knee pain. Offered steroid shot but she declined. She wanted to make sure there was no fracture. She has had increased swelling of the left leg recently Mammo 04/2023 DXA 2024 Colonoscopy-refuses. ROS see HPI PHYSICAL EXAM: GENERAL: Alert and oriented x 3. NAD EYES: EOMI. Anicteric. HENT: Moist mucous membranes. No scleral icterus. No cervical lymphadenopathy. LUNGS: Clear to auscultation bilaterally. CARDIOVASCULAR: Regular rate and rhythm. No JVD. ABDOMEN: Soft, non-tender +bs EXTREMITIES: +PT pulses SKIN: No rashes or lesions. Warm. NEUROLOGIC: No focal neurological deficits. CN II-XII grossly intact PSYCHIATRIC: Cooperative. Appropriate mood and affect PFSH Surgical History H/O rotator cuff surgery H/O: hysterectomy Family History Mother Pancreatic cancer Father Lung cancer Brother Thyroid cancer Social History (Updated 10/05/25 @ 11:14 by Lucy Iglesias CMA) Household Members: None Housing: House 75 years or older and lives alone: Yes Alcohol intake: never Patient Tobacco Use Status: Never used Tobacco e-Cigarette/Vaping Use: Never Used service: No Current occupational status: retired Cognitive needs: No Hearing needs: No Vision needs: No Questionnaire Thrive Questionnaire Date Thrive assessed: 05/12/25 I am a: Patient What is your living situation today?: I have a steady place to live Within the past 12 months, did the food you bought not last and you didn't have the money to get more?: Never true Within the past 12 months, did you worry whether your food would run out before you got money to buy more?: Never true Do you have trouble paying for medicines?: No Do you have trouble getting transportation to medical appointments?: No Do you have trouble paying your heating and electricity bill?: No Do you have trouble taking care of your child, family member or friend?: No Do you have trouble with day-to-day activities such as bathing, preparing meals, shopping, managing finances, etc.?: No Are you currently unemployed and looking for a job?: No Are you interested in more education?: I choose not to answer this question Please select the resources that you would like help with: None Currently or been in a relationship where the following occur: No concerns reported THRIVE Score: 0 ESME-7 AMB Questionnaire ESME-7 Date ESME - 7 assessed: 08/04/24 Source: Developed by Drs. Dexter Munoz, Penelope Grubbs, Ish Mancilla and colleagues, with an educational giovani from [employer]. Physical exam (Primary Care) Vital Signs: Last Vital Signs Temp 98 F 10/05/25 11:14 Pulse 73 10/05/25 11:14 Resp 14 10/05/25 11:14 BP 132/84 10/05/25 11:14 Pulse Ox 97 10/05/25 11:14 Oxygen Delivery Method Room Air 10/05/25 11:14 BMI result Body Mass Index 21.0 Tobacco/Smoking Status: Tobacco use Status Tobacco use date assessed 10/05/25 10/05/25 11:15 Patient Tobacco Use Status Never used Tobacco 10/05/25 11:14 e-Cigarette/Vaping Use Never Used 10/05/25 11:14 Thrive Assessment: Date of Thrive Assessment Date Thrive assessed 05/12/25 10/05/25 11:10 Currently or been in a relationship where the following occur: No concerns reported Coding Level of Care Code Est Pt Level 4 (42037) Diagnoses Age-related osteoporosis with current pathological fracture, sequela M80.00XS Osteoporosis type: age-related Presence of current pathological fracture: with current pathological fracture Encounter type: sequela Mixed hyperlipidemia E78.2 Hyperlipidemia type: mixed hyperlipidemia Assessment & Plan Assessment & Plan (1) Osteoporosis: Code(s): M81.0 - Age-related osteoporosis without current pathological fracture Category: Medical Qualifiers: Osteoporosis type: age-related Presence of current pathological fracture: with current pathological fracture Encounter type: sequela Qualified Code(s): M80.00XS - Age-related osteoporosis with current pathological fracture, unspecified site, sequela (2) Hyperlipidemia: Code(s): E78.5 - Hyperlipidemia, unspecified Category: Medical Qualifiers: Hyperlipidemia type: mixed hyperlipidemia Qualified Code(s): E78.2 - Mixed hyperlipidemia Plan Osteoporosis-declines prescription medication. continue calcium vitamin D. Stay active HLD-low cholesterol diet. Sinus congestion-azithromycin sent Medications: New azithromycin For 250 mg dose pack: take 500 mg today (day 1), then 250 mg for 4 days (days 2-5) PO 6 tabs 0RF
[2025-10-05 11:14] VITALS: BP 132/84; PULSE 73; RESP 14; TEMP 36.6; O2SAT 97; BMI 21.0
== END 2025-10-05 12:49 | disposition home or self-care (01) ==
LOC: HO.HMCFM 11:06
PROVIDERS: PCP Internal Medicine; Visit Provider Internal Medicine
DX: M80.00XS Age-related osteoporosis with current pathological fracture, unspecified site, sequela (principal); E78.2 Mixed hyperlipidemia

== ENCOUNTER → 2025-10-05 11:05 | Outpatient (BNVA) | payer MEDICARE, SELFPAY | PROVIDERS: PCP Internal Medicine | DX: E78.2 Mixed hyperlipidemia (principal); M80.00XS Age-related osteoporosis with current pathological fracture, unspecified site, sequela; R09.81 Nasal congestion; D32.9 Benign neoplasm of meninges, unspecified | CPT/HCPCS: 99212 ==